=== PATIENT | female | born 1965 ===

== ENCOUNTER 2018-08-05 10:30 | Day surgery (SDC) | payer OTHER ==
[~2018-08-05 10:30] MED LIST: PERCOCET 5-3251 EACH; PNEU16DI2
== END 2018-08-05 17:30 | disposition home or self-care (01) ==
LOC: CIR.AMB 10:30
DX: S52.392A Other fracture of shaft of radius, left arm, initial encounter for closed fracture (principal)

== ENCOUNTER 2020-08-22 10:44 | Outpatient (CLI) | payer OTHER | END 2020-08-22 10:47 | disposition home or self-care (01) | LOC: SONOGRAMA 10:44 | PROVIDERS: ATTEND Pathology Anatomic Pathology & Clinical Pathology | DX: E04.1 Nontoxic single thyroid nodule (principal) ==